=== PATIENT | female | born 1980 | race Caucasian/White ===

== ENCOUNTER → 2023-10-30 | Outpatient (CLI) | payer BC | END | disposition home or self-care (01) | LOC: RAH 15:09 | PROVIDERS: ATTEND Internal Medicine | DX: Z12.31 Encounter for screening mammogram for malignant neoplasm of breast (principal) | CPT/HCPCS: 77067 ==

== ENCOUNTER → 2025-03-01 | Outpatient (CLI) | payer OTHER ==
--- NOTE | 2025-03-02 13:27 | HMCIMG ---
FOOT COMP 3+VWS RT REASON: PAIN IN RIGHT FOOT TECHNIQUE: 3 views were obtained. FINDINGS: There is no evidence of fracture or dislocation. There is no joint effusion. The soft tissues appear unremarkable. There is no evidence of a radiopaque foreign body. There is been previous mid shaft fracture at the midshaft of the fifth metatarsal, there are [address], fracture line is no longer visible. IMPRESSION: 1. Old fracture midshaft left fifth metatarsal with [address] 2. Otherwise normal exam.
== END | disposition home or self-care (01) ==
LOC: RAH 16:53
PROVIDERS: ATTEND Internal Medicine
DX: M79.671 Pain in right foot (principal); Z87.81 Personal history of (healed) traumatic fracture
CPT/HCPCS: 73630

== ENCOUNTER → 2025-06-08 | Outpatient (CLI) | payer OTHER ==
--- NOTE | 2025-06-09 06:50 | HMCIMG ---
EXAMINATION: ULTRASOUND OF THE THYROID. CLINICAL HISTORY: Hypothyroidism. COMPARISON: None. TECHNIQUE: Transverse and longitudinal images were obtained through both lobes and the isthmus of the thyroid. FINDINGS: The thyroid gland is normal in caliber with homogenous tissue echotexture. The right thyroid lobe measures 3.4 x 2.4 x 1.6 cm and the left thyroid lobe measures 4.9 x 1.4 x 1.1 cm in the craniocaudal, AP, and transverse dimensions respectively. The isthmus measures 0.25 cm in AP dimension. Right lobe: There is a hypoechoic solid nodule that measures 3.1 x 1.9 x 2.1 cm at the lower pole (TR4). There is a hypoechoic mixed solid cystic nodule that measures 1.4 x 0.8 x 1.2 cm at the lower pole (TR3). Left lobe: There are no focal lesions. No significantly enlarged lymph nodes. IMPRESSION: Nodules in the right lobe of the thyroid. TI-RADS follow up recommendations: TR1: no FNA required TR2: no FNA required TR3: more than or equal to 1.5 cm follow up, more than or equal to 2.5 cm FNA follow up: 1, 3 and 5 years TR4: more than or equal to 1.0 cm follow up, more than or equal to 1.5 cm FNA follow up: 1, 2, 3 and 5 years TR5: more than or equal to 0.5 cm follow up, more than or equal to 1.0 cm FNA annual follow up for up to 5 years /[place]
== END | disposition home or self-care (01) ==
LOC: RAH 09:59
PROVIDERS: ATTEND Internal Medicine
DX: E04.1 Nontoxic single thyroid nodule (principal); E03.9 Hypothyroidism, unspecified
CPT/HCPCS: 76536